=== PATIENT | female | born 1980 | race Caucasian/White ===

== ENCOUNTER 2022-05-16 10:16 | Emergency (ER) | payer MEDICAID ==
[~2022-05-16] VITALS: Ht 172.7 cm; Wt 52.3 kg
[2022-05-16 10:19] VITALS: BP 126/60
[2022-05-16] MEDS ORDERED: SUMAtriptan 25 MG tablet PO ONE (12:00)
== END 2022-05-16 12:12 | disposition home or self-care (01) ==
LOC: ER 10:19
DX: G43.B0 Ophthalmoplegic migraine, not intractable (principal)
CPT/HCPCS: 99283; 99284; A6258

== ENCOUNTER 2024-02-06 15:02 | Outpatient (CLI) | payer MEDICAID | END 2024-02-06 23:59 | disposition home or self-care (01) | LOC: RAD 15:02 | PROVIDERS: ATTEND Nurse Practitioner Pediatrics | DX: N92.1 Excessive and frequent menstruation with irregular cycle (principal) | CPT/HCPCS: 76830; 76856; 93976 ==